=== PATIENT | female | born 1975 | race Two or more races ===

== ENCOUNTER 2017-11-18 15:34 | Emergency (ER) | payer OTHER ==
[2017-11-18] MEDS: HYDROcodone/APAP 5/325MG 1 TAB TABLET PO (17:12)
== END 2017-11-18 17:40 | disposition home or self-care (01) ==
LOC: ER 15:34
DX: S76.011A Strain of muscle, fascia and tendon of right hip, initial encounter (principal); J45.909 Unspecified asthma, uncomplicated; G43.909 Migraine, unspecified, not intractable, without status migrainosus; F12.10 Cannabis abuse, uncomplicated; Z90.710 Acquired absence of both cervix and uterus; X58.XXXA Exposure to other specified factors, initial encounter; Y93.89 Activity, other specified; Y92.69 Other specified industrial and construction area as the place of occurrence of the external cause; Y99.8 Other external cause status
CPT/HCPCS: 76882; 99284-25

== ENCOUNTER 2019-12-09 13:09 | Emergency (ER) | payer SELFPAY ==
[~2019-12-09] VITALS: Ht 162.6 cm; Wt 75.0 kg
[~2019-12-09 13:09] MED LIST: HYDR-3164 PO
[2019-12-09] MEDS ORDERED: methylPREDNISolone SOD SUCC PF 125 MG/2 ML VIAL. IV ONE (14:00)
[2019-12-09] MEDS ORDERED: IPRATRPIUM/ALBUTEROL 0.5/2.5MG 3 ML NEBU. NEB ONE (14:00)
[2019-12-09] MEDS ORDERED: IV NORMAL SALINE 1000ML BAG 1,000 ML IV ONE (14:00)
[2019-12-09 14:13] LABS: BASO % 0 % (0-3); EOS % 1 % (0-3); HEMATOCRIT 37.7 % (36.0-47.0); HEMOGLOBIN 13.2 g/dL (12.0-15.5); LYMPH # 0.7 x10^3/uL (1.0-4.8); LYMPH % 9 % (24-48); MEAN CORPUSCULAR HEMOGLOBIN 32 pg (25-35); MEAN CORPUSCULAR HGB CONC 35 g/dL (31-37); MEAN CORPUSCULAR VOLUME 92 fL (79-100); MONO # 0.6 x10^3/uL (0.0-1.1); MONO % 7 % (0-9); NEUT # 6.5 x10^3/uL (1.8-7.7); NEUT % 83 % (31-73); PLATELET COUNT 177 x10^3/uL (140-400); RED BLOOD COUNT 4.08 x10^6/uL (3.50-5.40); RED CELL DISTRIBUTION WIDTH 12.8 % (11.5-14.5); WHITE BLOOD COUNT 7.8 x10^3/uL (4.0-11.0)
[2019-12-09 14:17] LABS: BILIRUBIN,URINE NEGATIVE (NEG); CLARITY,URINE CLEAR; COLOR,URINE YELLOW; NITRITE,URINE NEGATIVE (NEG); PH,URINE 5.5; PROTEIN,URINE 30 mg/dL (NEG-TRACE)
[2019-12-09 14:30] LABS: SQUAMOUS EPITHELIAL CELL,UR MOD /LPF
[2019-12-09 14:32] LABS: BACTERIA,URINE 0 /HPF (0-FEW)
[2019-12-09 14:35] LABS: ALBUMIN 3.8 g/dL (3.4-5.0); ALBUMIN/GLOBULIN RATIO 1.2 (1.0-1.7); CALCIUM 8.4 mg/dL (8.5-10.1); MAGNESIUM 1.6 mg/dL (1.8-2.4); TOTAL BILIRUBIN 0.3 mg/dL (0.2-1.0); TOTAL PROTEIN 6.9 g/dL (6.4-8.2)
[2019-12-09 14:38] LABS: POTASSIUM 2.6 mmol/L (3.5-5.1)
[2019-12-09] MEDS ORDERED: POTASSIUM CHLORIDE 20 MEQ TABLET.ER. PO ONE ×2 (15:00→16:00)
[2019-12-09] MEDS ORDERED: MAGNESIUM SULFATE 2GM 50 ML IV ONE (15:00)
--- NOTE | 2019-12-09 15:31 | RAD ---
CHEST PA LATERAL History: Shortness of breath Comparison: None. Findings: Frontal and lateral views of chest were obtained. The cardiomediastinal silhouette is normal. Pulmonary vasculature is normal. The lungs are clear. No pleural effusion or pneumothorax is seen. There is no acute bone abnormality. IMPRESSION: No acute cardiopulmonary process. Electronically signed by: Axel Alvarado MD (12/09/2019 3:28 PM) [id number]
[2019-12-09] MEDS ORDERED: KETOROLAC 30 MG/ML VIAL. IVP ONE (16:00)
[2019-12-09] MEDS ORDERED: cefTRIAXone IV Push 1 GM VIAL. IVP ONE (16:00)
--- NOTE | 2019-12-09 16:06 | PHYS DOC ---
Past Medical History Past Medical History: Asthma, Migraines Additional Past Medical Histor: ENVIRONMENTAL ALLERGIES Past Surgical History: Hysterectomy Additional Past Surgical Histo: wrist surgery Smoking Status: Former Smoker Alcohol Use: None Drug Use: Marijuana Adult General Chief Complaint Chief Complaint: ASTHMA HPI HPI Patient is a 44 year old female who presented to ER today for evaluation of cough, congestion, trouble breathing off and on for 3 weeks. Patient has history of asthma. Patient had used her inhaler but did not get better. Patient says she coughs so much that her chest hurt whenever she takes a deep breath. Patient denies any recent travel, no recent operation, no history of blood clot disorder. NO History of coronary artery disease OR DIABETIC. Review of Systems Review of Systems aLL OTHER ros IS NEGATIVE UNLESS OTHERWISE NOTED IN hpi Current Medications Current Medications Current Medications Medications (Trade) Dose Ordered Sig/Aminta Start Time Stop Time Status Last Admin Dose Admin Albuterol/ Ipratropium (Duoneb) 3 ml 1X ONCE 12/09/19 14:00 12/09/19 14:01 DC 12/09/19 13:49 3 ML Ceftriaxone Sodium (Rocephin) 1 gm 1X ONCE 12/09/19 16:00 12/09/19 16:01 DC 12/09/19 16:04 1 GM Ketorolac Tromethamine (Toradol 30mg Vial) 30 mg 1X ONCE 12/09/19 16:00 12/09/19 16:01 DC 12/09/19 15:58 30 MG Magnesium Sulfate 50 ml @ 25 mls/hr 1X ONCE 12/09/19 15:00 12/09/19 16:29 DC 12/09/19 15:05 25 MLS/HR Methylprednisolone Sodium Succinate (SOLU-Medrol 125MG VIAL) 125 mg 1X ONCE 12/09/19 14:00 12/09/19 14:01 DC 12/09/19 14:00 125 MG Potassium Chloride (Klor-Con) 40 meq 1X ONCE 12/09/19 16:00 12/09/19 16:01 DC 12/09/19 15:58 40 MEQ Sodium Chloride 1,000 ml @ 1,000 mls/hr 1X ONCE 12/09/19 14:00 12/09/19 14:59 DC 12/09/19 14:01 1,000 MLS/HR Allergies Allergies Allergies Coded Allergies Type Severity Reaction Last Updated Verified No Known Drug Allergies 09/10/15 No Physical Exam Physical Exam See above Constitutional: Well developed, well nourished, no acute distress, non-toxic appearance. [] HENT: Normocephalic, atraumatic, bilateral external ears normal, oropharynx moist, no oral exudates, nose normal. [] Eyes: PERRLA, EOMI, conjunctiva normal, no discharge. [] Neck: Normal range of motion, no tenderness, supple, no stridor. [] Cardiovascular:Heart rate regular rhythm, no murmur [] Lungs & Thorax: Bilateral breath sounds WITH DIFFUSE WHEEZING, NO DISTRESS. Abdomen: Bowel sounds normal, soft, no tenderness, no masses, no pulsatile masses. [] Skin: Warm, dry, no erythema, no rash. [] Back: No tenderness, no CVA tenderness. [] Extremities: No tenderness, no cyanosis, no clubbing, ROM intact, no edema. [] Neurologic: Alert and oriented X 3, normal motor function, normal sensory function, no focal deficits noted. [] Psychologic: Affect normal, judgement normal, mood normal. [] Current Patient Data Vital Signs Vital Signs Date Time Temp Pulse Resp B/P (MAP) Pulse Ox O2 Delivery O2 Flow Rate FiO2 12/09/19 16:22 114 20 134/84 (101) 99 Room Air 12/09/19 13:35 97.0 97.0 Lab Values Laboratory Tests Test 12/09/19 13:42 12/09/19 13:50 12/09/19 13:52 12/09/19 14:15 Urine Collection Type Unknown Urine Color Yellow Urine Clarity Clear Urine pH 5.5 Urine Specific [place] >=1.030 Urine Protein 30 mg/dL (NEG-TRACE) Urine Glucose (UA) Negative mg/dL (NEG) Urine Ketones (Stick) Trace mg/dL (NEG) Urine Blood Negative (NEG) Urine Nitrite Negative (NEG) Urine Bilirubin Negative (NEG) Urine Urobilinogen Dipstick 1.0 mg/dL (0.2 mg/dL) Urine Leukocyte Esterase Negative (NEG) Urine RBC 3-5 /HPF (0-2) Urine WBC 1-4 /HPF (0-4) Urine Squamous Epithelial Cells Mod /LPF Urine Bacteria 0 /HPF (0-FEW) Urine Mucus Marked /LPF White Blood Count 7.8 x10^3/uL (4.0-11.0) Red Blood Count 4.08 x10^6/uL (3.50-5.40) Hemoglobin 13.2 g/dL (12.0-15.5) Hematocrit 37.7 % (36.0-47.0) Mean Corpuscular Volume 92 fL (79-100) Mean Corpuscular Hemoglobin 32 pg (25-35) Mean Corpuscular Hemoglobin Concent 35 g/dL (31-37) Red Cell Distribution Width 12.8 % (11.5-14.5) Platelet Count 177 x10^3/uL (140-400) Neutrophils (%) (Auto) 83 % (31-73) H Lymphocytes (%) (Auto) 9 % (24-48) L Monocytes (%) (Auto) 7 % (0-9) Eosinophils (%) (Auto) 1 % (0-3) Basophils (%) (Auto) 0 % (0-3) Neutrophils # (Auto) 6.5 x10^3/uL (1.8-7.7) Lymphocytes # (Auto) 0.7 x10^3/uL (1.0-4.8) L Monocytes # (Auto) 0.6 x10^3/uL (0.0-1.1) Eosinophils # (Auto) 0.0 x10^3/uL (0.0-0.7) Basophils # (Auto) 0.0 x10^3/uL (0.0-0.2) POC Urine HCG, Qualitative Hcg negative (Negative) Sodium Level 141 mmol/L (136-145) Potassium Level 2.6 mmol/L (3.5-5.1) *L Chloride Level 107 mmol/L (98-107) Carbon Dioxide Level 23 mmol/L (21-32) Anion Gap 11 (6-14) Blood Urea Nitrogen 11 mg/dL (7-20) Creatinine 1.0 mg/dL (0.6-1.0) Estimated GFR (Cockcroft-Gault) 60.0 BUN/Creatinine Ratio 11 (6-20) Glucose Level 112 mg/dL (70-99) H Calcium Level 8.4 mg/dL (8.5-10.1) L Magnesium Level 1.6 mg/dL (1.8-2.4) L Total Bilirubin 0.3 mg/dL (0.2-1.0) Aspartate Amino Transferase (AST) 18 U/L (15-37) Alanine Aminotransferase (ALT) 12 U/L (14-59) L Alkaline Phosphatase 49 U/L (46-116) Total Protein 6.9 g/dL (6.4-8.2) Albumin 3.8 g/dL (3.4-5.0) Albumin/Globulin Ratio 1.2 (1.0-1.7) Laboratory Tests 12/09/19 13:50 Laboratory Tests 12/09/19 14:15 EKG EKG [] Radiology/Procedures Radiology/Procedures [][facility] [address] [place] [address] IMAGING REPORT Signed PATIENT: AFTAB BARKER ACCOUNT: [id number] : 1975 LOCATION: ER AGE: 44 SEX: F EXAM STATUS: REG ER ORD. PHYSICIAN: TARYN BENJAMIN DO REASON: soa PROCEDURE: CHEST PA & LATERAL CHEST PA LATERAL History: Shortness of breath Comparison: None. Findings: Frontal and lateral views of chest were obtained. The cardiomediastinal silhouette is normal. Pulmonary vasculature is normal. The lungs are clear. No pleural effusion or pneumothorax is seen. There is no acute bone abnormality. IMPRESSION: No acute cardiopulmonary process. Electronically signed by: Axel Keating MD (12/09/2019 3:28 PM) [id number] DICTATED and SIGNED BY: AXEL KEATING MD DATE: 12/09/19 1528 Course & Med Decision Making Course & Med Decision Making Pertinent Labs and Imaging studies reviewed. (See chart for details) Patient was given DuoNeb treatment in the ER, and 125 mg Solu-Medrol IV, 80 mEq of potassium by mouth, 2 g magnesium IV, 1 GRAM ROCEPHIN IV. Patient felt much better. She was discharged home in stable condition. Dragon Disclaimer Dragon Disclaimer This electronic medical record was generated, in whole or in part, using a voice recognition dictation system. Departure Departure Impression: Primary Impression: Bronchitis Additional Impressions: Asthma attack Hypokalemia Disposition: 01 HOME, SELF-CARE Condition: IMPROVED Referrals: NO PCP (PCP) FOLLOW UP WITH YOUR FAMILY DOCTOR IN 2 DAYS FOR REEVALUATION. Patient Instructions: Acute Bronchitis, Asthma, Acute Bronchospasm Additional Instructions: Thank you for visiting our Emergency Department. We appreciate you trusting us with your care. If any additional problems come up don't hesitate to return to visit us. Please follow up with your primary care provider so they can plan additional care if needed and know about the problem that you had. If symptoms worsen come back to the Emergency Department. Any concerning symptoms that start such as chest pain, shortness of air, weakness or numbness on one side of the body, running high fevers or any other concerning symptoms return to the ER. Scripts Benzonatate (TESSALON PERLE) 100 Mg Capsule 1 CAP PO TID PRN for COUGH, #21 CAP Prov: TARYN BENJAMIN DO 12/09/19 Albuterol Sulfate (PROAIR HFA INHALER) 8.5 Gm Hfa.aer.ad 2 PUFF IH PRN Q4-6HRS PRN for wheezing for 21 Days, #1 INHALER 0 Refills Prov: TARYN BENJAMIN DO 12/09/19 Prednisone (PREDNISONE) 20 Mg Tablet 1 TAB PO DAILY for 10 Days, #10 TAB Prov: TARYN BENJAMIN DO 12/09/19 Azithromycin (ZITHROMAX) 250 Mg Tablet 1 PKG PO UD, #6 TAB Prov: TARYN BENJAMIN DO 12/09/19 Problem Qualifiers TARYN BENJAMIN DO Dec 09, 2019 16:06
[2019-12-09] MEDS ORDERED: BENZ100C PO (16:12)
[2019-12-09] MEDS ORDERED: ALBU2.5V8 IH (16:12)
[2019-12-09] MEDS ORDERED: AZIT250T PO (16:12)
[2019-12-09] MEDS ORDERED: PRED20TA PO (16:12)
[2019-12-09 16:22] VITALS: BP 134/84
== END 2019-12-09 16:22 | disposition home or self-care (01) ==
LOC: ER 13:09
DX: J45.909 Unspecified asthma, uncomplicated (principal); E87.6 Hypokalemia; R09.81 Nasal congestion; G43.909 Migraine, unspecified, not intractable, without status migrainosus; F12.90 Cannabis use, unspecified, uncomplicated; F17.200 Nicotine dependence, unspecified, uncomplicated; Z90.710 Acquired absence of both cervix and uterus; Z98.890 Other specified postprocedural states; Z79.899 Other long term (current) drug therapy
CPT/HCPCS: 36415; 71046; 80053; 81001; 81025; 83735; 85025; 94640; 96361; 96365; 96375; 99285; J0696; J1885; J2930; J3475; J7030; J7620